=== PATIENT | male | born 1940 | race Caucasian/White ===

== ENCOUNTER → 2016-12-12 08:24 | Outpatient (CLI) | payer MEDICARE, OTHER ==
[2015-09-18 10:35] VITALS: BMI 27.4
[~2016-12-12 08:24] MED LIST: AMBIEN5 MG PO; ARICEPT10 MG PO; ASPIRIN EC325 M1 PO; ASPIRIN EC81 MG PO; ATIVAN0.5 MG PO; BACTRIM DS TABL1 TAB PO; BACTROBAN 22 GM22 GM NASAL; BAYER CHEWABLE81 MG PO; BELSOMRA PO; CELEXA20 MG PO; CYMBALTA60 MG PO; DETROL2 MG PO; FERROUS SULFAT325 MG PO; FLOMAX0.4 MG PO; FLUDROCORTISON0.1 MG PO; MIRALAX17 GM PO; MIRAPEX0.125 MG PO; MOBIC7.5 MG PO; NORCO 5/325 TAB1 TA1 PO; NORCO 7.5/325 T1 TA1 PO; PLAVIX75 MG PO; RESTORIL15 MG PO; ROBAXIN500 MG PO; RYTHMOL225 MG PO; SALINE FLUSH10 ML IJ; SPIRIVA18 MCG INH; TEFLARO600 MG IV; TYLENOL 325 MG325 MG PO; VIBRAMYCIN 100100 MG PO; ZOFRAN4 MG PO
== END | disposition home or self-care (01) ==
LOC: D.US 08:24
DX: R10.9 Unspecified abdominal pain (principal)

== ENCOUNTER 2017-03-19 21:03 | Inpatient (IN) | payer MEDICARE, OTHER ==
[~2017-03-19] VITALS: Ht 172.7 cm; Wt 81.6 kg
[2017-03-19 21:59] LABS: BASOPHILS 0.2 % (0-2); EOSINOPHILS 1.3 % (0-7); HEMATOCRIT 41.4 % (42.0-54.0); HEMOGLOBIN 13.6 g/dL (13.5-17.5); IMMATURE GRANULOCYTES 2.3 % (0-5); LYMPHOCYTES 16.6 % (15-50); MCH 29.8 pg (26.0-34.0); MCHC 32.9 g/dL (31.0-37.0); MCV 90.8 fL (80.0-100.0); MEAN PLATELET VOLUME 9.8 fL (7.4-10.4); MONOCYTES 11.9 % (2-11); NEUTROPHILS 67.7 % (40-80); PLATELET COUNT 226 10x3/uL (130-400); RBC 4.56 10x6/uL (4.20-6.10); RDW 17.8 % (11.5-14.5); WBC 8.7 10x3/uL (4.8-10.8)
[2017-03-19 22:12] LABS: ALBUMIN 3.7 g/dL (3.4-5.0); ANION GAP 11.8 mmol/L (8-16); BILIRUBIN - TOTAL 1.69 mg/dL (0.2-1.3); CALCIUM 8.6 mg/dL (8.5-10.1); CARBON DIOXIDE 26.7 mmol/L (21.0-32.0); CREATININE - SERUM 1.3 mg/dL (0.6-1.3); POTASSIUM - SERUM 4.5 mmol/L (3.5-5.1)
[2017-03-19 23:20] LABS: CREATINE KINASE 42 UL (21-232)
[2017-03-19 23:24] LABS: TROPONIN-I < 0.017 ng/mL (0.000-0.060)
[2017-03-20 00:24] LABS: APPEARANCE CLEAR (CLEAR); BILIRUBIN NEGATIVE (NEGATIVE); COLOR YELLOW (YELLOW); GLUCOSE NEGATIVE (NEGATIVE); KETONE NEGATIVE (NEGATIVE); LEUKOCYTE ESTERASE NEGATIVE (NEGATIVE); NITRITE NEGATIVE (NEGATIVE); PROTEIN NEGATIVE (NEGATIVE); UROBILINOGEN NORMAL (NORMAL)
[2017-03-20 01:00] VITALS: BP 166/76; BMI 27.4
[2017-03-20 04:00] VITALS: BP 105/74
[2017-03-20 07:37] VITALS: BP 139/67
[2017-03-20 09:53] VITALS: Ht 172.7 cm; Wt 81.6 kg
[2017-03-20 12:11] VITALS: BP 116/69
[2017-03-20 20:00] VITALS: BP 123/63
[2017-03-21] VITALS: BP 1121/71
[2017-03-21 04:00] VITALS: BP 141/74
[2017-03-21 04:41] LABS: BASOPHILS 0.1 % (0-2); EOSINOPHILS 0 % (0-7); HEMATOCRIT 38.1 % (42.0-54.0); HEMOGLOBIN 12.6 g/dL (13.5-17.5); IMMATURE GRANULOCYTES 0.6 % (0-5); LYMPHOCYTES 4.2 % (15-50); MCH 29.6 pg (26.0-34.0); MCHC 33.1 g/dL (31.0-37.0); MCV 89.6 fL (80.0-100.0); MEAN PLATELET VOLUME 9.8 fL (7.4-10.4); MONOCYTES 3.2 % (2-11); NEUTROPHILS 91.9 % (40-80); PLATELET COUNT 238 10x3/uL (130-400); RBC 4.25 10x6/uL (4.20-6.10); RDW 16.8 % (11.5-14.5)
[2017-03-21 05:04] LABS: ALBUMIN 3.2 g/dL (3.4-5.0); ANION GAP 10.3 mmol/L (8-16); BILIRUBIN - TOTAL 0.6 mg/dL (0.2-1.3); CALCIUM 8.6 mg/dL (8.5-10.1); CARBON DIOXIDE 28.9 mmol/L (21.0-32.0); CREATININE - SERUM 1.3 mg/dL (0.6-1.3); POTASSIUM - SERUM 4.2 mmol/L (3.5-5.1); PROTEIN - SERUM 6.3 g/dL (6.4-8.2)
[2017-03-21 07:54] VITALS: BP 140/75
[2017-03-21 12:39] VITALS: BP 134/77
[2017-03-21 15:30] VITALS: BP 143/84
[2017-03-21 20:00] VITALS: BP 151/76
[2017-03-22] VITALS: BP 163/89
[2017-03-22 04:00] VITALS: BP 149/97
[2017-03-22 05:40] LABS: HEMATOCRIT 40.3 % (42.0-54.0); HEMOGLOBIN 13.1 g/dL (13.5-17.5); MCH 29.8 pg (26.0-34.0); MCHC 32.5 g/dL (31.0-37.0); MCV 91.8 fL (80.0-100.0); PLATELET COUNT 243 10x3/uL (130-400); RBC 4.39 10x6/uL (4.20-6.10); RDW 16.5 % (11.5-14.5); WBC 21.1 10x3/uL (4.8-10.8)
[2017-03-22 06:05] LABS: ALKALINE PHOSPHATASE 57 U/L (46-116); ALT (SGPT) 25 U/L (10-68); CALC OSMOLALITY 288 mosm/kg (275-300); CALCIUM 8.5 mg/dL (8.5-10.1); CARBON DIOXIDE 29.8 mmol/L (21.0-32.0); CHLORIDE - SERUM 105 mmol/L (98-107); GLUCOSE 154 mg/dL (74-106); POTASSIUM - SERUM 4.4 mmol/L (3.5-5.1); PROTEIN - SERUM 6.2 g/dL (6.4-8.2); SODIUM 141 mmol/L (136-145); UREA NITROGEN 27 mg/dL (7-18); eGFR NON AFRICAN AMERICAN 77 mL/min (90-120)
[2017-03-22 06:08] LABS: LYMPHOCYTES 2 % (15-50); MONOCYTES 2 % (2-11); NEUTROPHILS 91 % (40-80); PLATELET ESTIMATE NORMAL; PLATELET MORPHOLOGY NORMAL PLT MORPH
[2017-03-22 08:59] VITALS: BP 158/87
[2017-03-22 13:24] VITALS: BP 159/85
[2017-03-22 15:44] VITALS: BP 162/82
[2017-03-22 19:00] VITALS: BP 171/84
[2017-03-23] VITALS: BP 169/86
[2017-03-23 04:00] VITALS: BP 173/94
[2017-03-23 04:40] LABS: BASOPHILS 0.1 % (0-2); EOSINOPHILS 0.1 % (0-7); HEMATOCRIT 40.4 % (42.0-54.0); HEMOGLOBIN 13.3 g/dL (13.5-17.5); IMMATURE GRANULOCYTES 1.9 % (0-5); LYMPHOCYTES 9.3 % (15-50); MCH 29.8 pg (26.0-34.0); MCHC 32.9 g/dL (31.0-37.0); MCV 90.4 fL (80.0-100.0); MEAN PLATELET VOLUME 9.9 fL (7.4-10.4); MONOCYTES 9.6 % (2-11); PLATELET COUNT 210 10x3/uL (130-400); RBC 4.47 10x6/uL (4.20-6.10); RDW 16.3 % (11.5-14.5); WBC 16.2 10x3/uL (4.8-10.8)
[2017-03-23 05:00] LABS: ALKALINE PHOSPHATASE 60 U/L (46-116); ALT (SGPT) 44 U/L (10-68); CALC OSMOLALITY 286 mosm/kg (275-300); CALCIUM 8.4 mg/dL (8.5-10.1); CARBON DIOXIDE 29.6 mmol/L (21.0-32.0); CHLORIDE - SERUM 105 mmol/L (98-107); GLUCOSE 141 mg/dL (74-106); POTASSIUM - SERUM 3.7 mmol/L (3.5-5.1); SODIUM 141 mmol/L (136-145); UREA NITROGEN 24 mg/dL (7-18); eGFR NON AFRICAN AMERICAN 77 mL/min (90-120)
[2017-03-23] MEDS ORDERED: LEVAQUIN750 MG PO (07:16)
[2017-03-23] MEDS ORDERED: MEDROL DOSE PACK4 MG PO (07:17)
[2017-03-23] MEDS ORDERED: PROAIR HFA8.5 GM INH (07:17)
[2017-03-23 08:04] VITALS: BP 160/82
== END 2017-03-23 09:05 | disposition home or self-care (01) | DRG 193 ==
LOC: D.ER 21:03 → D.MS 23:38
PROVIDERS: Emergency Medicine; Family Medicine; ADMIT Family Medicine
DX: J18.9 Pneumonia, unspecified organism (principal); G93.41 Metabolic encephalopathy; J45.901 Unspecified asthma with (acute) exacerbation; I48.91 Unspecified atrial fibrillation; I25.10 Atherosclerotic heart disease of native coronary artery without angina pectoris; F03.90 Unspecified dementia, unspecified severity, without behavioral disturbance, psychotic disturbance, mood disturbance, and anxiety

== ENCOUNTER → 2019-09-28 09:35 | Outpatient (CLI) | payer MEDICARE, OTHER ==
[2017-03-20 09:53] VITALS: BMI 27.3
[~2019-09-28 09:35] MED LIST changes: +LEVAQUIN750 MG PO; +MEDROL DOSE PACK4 MG PO; +PROAIR HFA8.5 GM INH
== END | disposition home or self-care (01) ==
LOC: D.ECHO 09:00
PROVIDERS: ATTEND Family Medicine
DX: R50.9 Fever, unspecified (principal)